=== PATIENT | female | born 1985 | race Caucasian/White ===

== ENCOUNTER 2018-02-05 12:31 | Observation (INO) ==
[2018-02-05] MEDS ORDERED: Ondansetron 4 MG/2 ML VIAL IVP ONE (12:38)
[2018-02-05] MEDS ORDERED: 0.9 % Sodium Chloride 1,000 ML IVC ONE (12:38)
[2018-02-05] MEDS ORDERED: MVI, adult with vitamin K 10 ML in 0.9 % Sodium Chloride 1,000 ML IVC ONE (12:38)
--- NOTE | 2018-02-05 12:42 | Emergency Department Note ---
Disposition Clinical Impression: Gastroenteritis, Alcohol abuse with intoxication Disposition: Transfer Intermediate Care Fac Condition: Good Time of Disposition: 13:17 (Dr Brooks accepted the pt for CIWA protocol and hydration) Nausea/Vomiting/Diarrhea HPI - General Chief complaint: ED Nausea/Vomiting/Diarrhea Stated complaint: Hang over, nausea and vomiting Source: patient Limitations: no limitations Nursing Notes Reviewed: Yes Vital Signs Reviewed: Yes - History of Present Illness HPI Narrative: Patient is a pleasant 32-year-old female with no significant PMH who is presenting to [facility] Emergency Room with a chief complaint off alcohol withdrawal. Patient complaining off nausea or vomiting and generalized abdominal pain from the excessive vomiting. She has been vomiting constantly and unable to hold anything down. She admits to drinking 3 large cans of beer yesterday night. She states that she always drink the same but did not experience such symptoms. She is lethargic and weak and has generalized body aches. Patient denies any fever, chills or night sweats. Pt also denies any eye pain or visual disturbances. There is no sore throat, nasal drainages or facial congestion. There is no chest pain, palpitations or racing heart. Pt also denies any shortness of breath, cough or chest congestion. There is no urgency, frequency or dysuria. There is no muskulo-skeletal pain, arthralgia or back pain. Patient also denies any rash, edema or pruritus. There is no neurological manifestations, no headache, no vertigo or weakness. The patient also denies any anxiety, depression, hallucinations and has no homicidal or suicidal ideations. There is no polyuria, polydipsia or recent weight change. There is no easy bruising or bleeding. Review of other systems is otherwise negative except above. Pt Subjective Complaint: nausea, vomiting, abdominal pain Onset (ago): hour(s) (12) Description of emesis: food contents - Related Data Home Medications Medication Instructions Recorded Confirmed No Known Home Drugs 02/05/18 02/05/18 Allergies Allergy/AdvReac Type Severity Reaction Status Date / Time No Known Allergies Allergy Verified 02/05/18 12:31 All systems ED: reviewed and negative except as stated. Review of Systems: As Per HPI Constitutional: Reports: weakness. Denies: fever, chills, weight change Eyes: Denies: eye pain, eye discharge, vision change ENT ED: Denies: ear pain, throat pain, dental pain, hearing loss, epistaxis, congestion, dysphagia Cardiovascular: Denies: chest pain, palpitations, dyspnea on exertion, edema, syncope Respiratory: Denies: cough, dyspnea, wheezes, hemoptysis, stridor Gastrointestinal: Reports: abdominal pain, nausea, vomiting. Denies: diarrhea, constipation, hematemesis, melena, hematochezia Genitourinary: Denies: dysuria, frequency, hematuria, discharge Musculoskeletal: Denies: back pain, neck pain, arthralgia, myalgia Integumentary: Denies: rash, abrasion, lesions Neurological: Denies: headache, weakness, numbness, paresthesias, confusion, abnormal gait, vertigo Psychiatric: Denies: anxiety, depression, suicidal thoughts, homicidal thoughts, auditory hallucinations, visual hallucinations Endocrine: Denies: fatigue Hematological/Lymphatic: Denies: easy bleeding, easy bruising Allergic/Immunologic: Denies: facial swelling, urticaria Past Medical History - Past Medical History Medical history: Reports: no medical history Surgical history: Reports: other (tonsillectomy) Psychiatric history: Reports: no psych history - Social History Smoking Status: Current every day smoker Smokeless Tobacco Status: No Alcohol use: Reports: occasionally, recent Drug use: Reports: marijuana Physical Exam - General Limitations: no limitations General appearance: alert, lethargic, in distress - Head Head exam: atraumatic, normocephalic, normal inspection - Eye Eye exam: Present: normal appearance, PERRL, EOMI - Expanded Eye Exam Pupils: Left: reactive - ENT ENT exam: normal exam, normal oropharynx, mucous membranes dry - Expanded ENT Exam External ear exam: Present: normal external inspection Mouth exam: Present: normal external inspection Teeth exam: Present: normal inspection Throat exam: Present: normal inspection - Neck Neck exam: Present: normal inspection, full ROM, trachea midline - Chest Chest inspection: Present: normal inspection, symmetric chest wall rise - Respiratory Respiratory exam: Present: normal lung sounds bilaterally - Cardiovascular Cardiovascular exam: Present: regular rate, normal rhythm, normal heart sounds - Abdominal Exam Abdominal exam: Present: soft, Non-Tender. Absent: tenderness, distention, guarding, rebound, rigidity - Extremities Exam Extremities exam: Present: normal inspection, full ROM. Absent: tenderness, ped al edema - Expanded Upper Extremity Exam Shoulder exam: Present: normal inspection, full ROM Arm exam: Present: normal inspection, full ROM Elbow exam: Present: normal inspection, full ROM Forearm/Wrist exam: Present: normal inspection, full ROM Hand exam: Present: normal inspection, full ROM Vascular exam: Normal: capillary refill, radial pulse - Expanded Lower Extremity Exam Hip/Pelvis exam: Present: normal inspection, full ROM Upper leg exam: Present: normal inspection, full ROM Knee exam: Present: normal inspection, full ROM Lower leg exam: Present: normal inspection, full ROM Ankle exam: Present: normal inspection, full ROM Foot/toe exam: Present: normal inspection, full ROM Neurovascular/Tendon exam: Absent: motor deficit, sensory deficit, tendon deficit - Back Exam Back exam: Present: normal inspection, full ROM. Absent: tenderness - Neurological Exam Neurological exam: Present: alert, oriented X3 - Expanded Neurological Exam Patient oriented to: Present: person, place, time Coma Scale Eye Opening: Spontaneous Coma Scale Motor Response: Obeys Commands Coma Scale Verbal Response: Oriented Coma Scale Total: 15 - Psychiatric Psychiatric exam: Present: normal affect, normal mood - Skin Skin exam: Present: warm, dry, intact, normal color Course Vital Signs Temperature 97.4 F L 02/05/18 12:32 Pulse Rate 70 02/05/18 12:32 Respiratory Rate 18 02/05/18 12:32 Blood Pressure 147/99 02/05/18 12:32 O2 Sat by Pulse Oximetry 98 02/05/18 12:32 Temperature 97.4 F L 02/05/18 12:32 Pulse Rate 66 02/05/18 13:43 Respiratory Rate 18 02/05/18 13:43 Blood Pressure 134/82 02/05/18 13:43 O2 Sat by Pulse Oximetry 99 02/05/18 13:43 Oxygen Delivery Oxygen Delivery Room Air Nausea/Vomiting/Diarrhea - Differential Diagnosis Likely: food poisoning, gastroenteritis, drug-induced nausea and vomitting, dehydration - Medical Records Medical records reviewed: Yes I reviewed the patient's medical records. - Lab Data Lab results reviewed: Yes I reviewed the patient's lab results. Result diagrams: 02/05/18 13:01 02/05/18 13:01 Lab Results 02/05/18 02/05/18 02/05/18 Range/Units 12:50 12:50 12:50 WBC (4.3-11.1) K/mcL RBC (3.82-4.97) M/mcL Hgb (11.5-15.4) g/dL Hct (35.3-44.9) % MCV (83.0-100.0) fL MCH (28.0-33.3) pg MCHC (31.6-35.5) g/dL RDW (11.5-14.5) % Plt Count (140-400) K/mcL MPV (9.4-12.4) fL Immature Gran % (0-4) % Seg Neutrophils % % Lymphocytes % % Monocytes % % Eosinophils % % Basophils % % Neutrophils # (1.6-8.9) K/mcL Lymphocytes # (0.6-4.6) K/mcL Monocytes # (0.0-1.3) K/mcL Eosinophils # (0.0-0.6) K/mcL Basophils # (0.0-0.2) K/mcL Sodium (136-145) mEq/L Potassium (3.5-5.1) mEq/L Chloride (98-107) mEq/L Carbon Dioxide (23-29) mEq/L BUN (6-20) mg/dL Creatinine (0.60-1.20) mg/dL Est GFR ( Amer) (> 60) Est GFR (Non-Af Amer) (> 60) BUN/Creatinine Ratio (6-26) Glucose (70-105) mg/dL Calculated Osmolality (280-300) Calcium (8.6-10.3) mg/dL Total Bilirubin (0.3-1.0) mg/dL AST (13-39) Units/L ALT (7-52) Units/L Alkaline Phosphatase (34-104) Units/L Serum Total Protein (6.4-8.9) g/dL Albumin (3.5-5.7) g/dL Globulin (2.4-3.5) g/dL Albumin/Globulin Ratio (1.1-2.2) Lipase (11-82) Units/L Urine Color Yellow (Yellow) Urine Clarity Clear (Clear) Urine pH 5.0 (5.0-8.0) pH Units Ur Specific [place] >= 1.030 H (1.010-1.025) Urine Protein 30 H (Neg-Trace) mg/dL Urine Glucose (UA) Normal (Normal) mg/dL Urine Ketones 80 H (Negative) mg/dL Urine Blood Negative (Negative) Urine Nitrite Negative (Negative) Urine Bilirubin Negative (Negative) Urine Urobilinogen Normal (Normal) mg/dL Ur Leukocyte Esterase Negative (Negative) Urine Microscopic RBC 0-3 (0-3) per hpf Urine Microscopic WBC 0-3 (0-3) per hpf Ur Squamous Epith Cells Few (None-Few) per lpf Urine Bacteria Few (None-Few) per hpf Urine Mucus Few (Few) Ur Culture Indicated? NO (NO) Urine Test Negative (Negative) Urine Opiates Screen Negative (Mlsuxg=274) ng/mL Ur Oxycodone Screen Negative (Cutoff= 100) ng/mL Ur Barbiturates Screen Negative (Gcbvhx=211) ng/mL Ur Phencyclidine Scrn Negative (Cutoff=25) ng/mL Ur Amphetamines Screen Negative (Pwyaqg=0471) ng/mL U Benzodiazepines Scrn Negative (Lrvdpd=350) ng/mL Urine Cocaine Screen Negative (Cutoff= 300) ng/mL U Marijuana (THC) Screen Positive H (Cutoff = 50) ng/mL Ur Drug Screen Interp See Below Ethyl Alcohol (Less than 10) mg/dL 02/05/18 02/05/18 02/05/18 Range/Units 13:01 13:01 13:01 WBC 16.0 H (4.3-11.1) K/mcL RBC 4.29 (3.82-4.97) M/mcL Hgb 14.6 (11.5-15.4) g/dL Hct 42.1 (35.3-44.9) % MCV 98.1 (83.0-100.0) fL MCH 34.0 H (28.0-33.3) pg MCHC 34.7 (31.6-35.5) g/dL RDW 11.8 (11.5-14.5) % Plt Count 302 (140-400) K/mcL MPV 9.5 (9.4-12.4) fL Immature Gran % 0.4 (0-4) % Seg Neutrophils % 88.6 % Lymphocytes % 8.2 % Monocytes % 2.4 % Eosinophils % 0.1 % Basophils % 0.3 % Neutrophils # 14.2 H (1.6-8.9) K/mcL Lymphocytes # 1.3 (0.6-4.6) K/mcL Monocytes # 0.4 (0.0-1.3) K/mcL Eosinophils # 0.0 (0.0-0.6) K/mcL Basophils # 0.1 (0.0-0.2) K/mcL Sodium 143 (136-145) mEq/L Potassium 4.3 (3.5-5.1) mEq/L Chloride 106 (98-107) mEq/L Carbon Dioxide 20 L (23-29) mEq/L BUN 17 (6-20) mg/dL Creatinine 0.70 (0.60-1.20) mg/dL Est GFR ( Amer) > 60 (> 60) Est GFR (Non-Af Amer) > 60 (> 60) BUN/Creatinine Ratio 24 (6-26) Glucose 94 (70-105) mg/dL Calculated Osmolality 297 (280-300) Calcium 9.4 (8.6-10.3) mg/dL Total Bilirubin 0.8 (0.3-1.0) mg/dL AST 29 (13-39) Units/L ALT 15 (7-52) Units/L Alkaline Phosphatase 55 (34-104) Units/L Serum Total Protein 8.1 (6.4-8.9) g/dL Albumin 5.3 (3.5-5.7) g/dL Globulin 2.8 (2.4-3.5) g/dL Albumin/Globulin Ratio 1.9 (1.1-2.2) Lipase 20 (11-82) Units/L Urine Color (Yellow) Urine Clarity (Clear) Urine pH (5.0-8.0) pH Units Ur Specific [place] (1.010-1.025) Urine Protein (Neg-Trace) mg/dL Urine Glucose (UA) (Normal) mg/dL Urine Ketones (Negative) mg/dL Urine Blood (Negative) Urine Nitrite (Negative) Urine Bilirubin (Negative) Urine Urobilinogen (Normal) mg/dL Ur Leukocyte Esterase (Negative) Urine Microscopic RBC (0-3) per hpf Urine Microscopic WBC (0-3) per hpf Ur Squamous Epith Cells (None-Few) per lpf Urine Bacteria (None-Few) per hpf Urine Mucus (Few) Ur Culture Indicated? (NO) Urine Test (Negative) Urine Opiates Screen (Nklnnb=337) ng/mL Ur Oxycodone Screen (Cutoff= 100) ng/mL Ur Barbiturates Screen (Viuhif=920) ng/mL Ur Phencyclidine Scrn (Cutoff=25) ng/mL Ur Amphetamines Screen (Bdladx=8584) ng/mL U Benzodiazepines Scrn (Bunqno=926) ng/mL Urine Cocaine Screen (Cutoff= 300) ng/mL U Marijuana (THC) Screen (Cutoff = 50) ng/mL Ur Drug Screen Interp Ethyl Alcohol 21 H (Less than 10) mg/dL
[2018-02-05] MEDS ORDERED: Pantoprazole 40 MG VIAL IVP ONE (12:49)
[2018-02-05 13:02] LABS: Bilirubin,Urine Negative (Negative); Blood,Urine Negative (Negative); Clarity,Urine Clear (Clear); Color,Urine Yellow (Yellow); Glucose,Urine (UA) Normal (Normal); Ketones,Urine 80 mg/dL (Negative); Leukocyte Esterase,Urine Negative (Negative); Nitrite,Urine Negative (Negative); Protein,Urine 30 mg/dL (Neg-Trace); Specific Gravity,Urine >= 1.030 (1.010-1.025); Urobilinogen,Urine Normal (Normal)
[2018-02-05 13:08] LABS: Basophils # 0.1 K/mcL (0.0-0.2); Basophils % 0.3 %; Eosinophils % 0.1 %; Hematocrit 42.1 % (35.3-44.9); Hemoglobin 14.6 g/dL (11.5-15.4); Immature Granulocytes % 0.4 % (0-4); Lymphocytes # 1.3 K/mcL (0.6-4.6); Lymphocytes % 8.2 %; Mean Corpuscular HGB Conc 34.7 g/dL (31.6-35.5); Mean Corpuscular Volume 98.1 fL (83.0-100.0); Mean Platelet Volume 9.5 fL (9.4-12.4); Monocytes # 0.4 K/mcL (0.0-1.3); Monocytes % 2.4 %; Neutrophils # 14.2 K/mcL (1.6-8.9); Platelet Count 302 K/mcL (140-400); Red Blood Count 4.29 M/mcL (3.82-4.97); Red Cell Distribution Width 11.8 % (11.5-14.5); Segmented Neutrophils % 88.6 %
[2018-02-05 13:09] LABS: Bacteria,Urine Few per hpf (None-Few); Mucus,Urine Few (Few); RBC,Urine 0-3 per hpf (0-3); Squamous Epithelial Cell,Urine Few per lpf (None-Few); WBC,Urine 0-3 per hpf (0-3)
[2018-02-05] MEDS ORDERED: Naloxone 0.4 MG/ML INJ IVP PRN ×2 (13:18→13:20)
[2018-02-05 13:27] LABS: Alanine Aminotransferase 15 Units/L (7-52); Albumin 5.3 g/dL (3.5-5.7); Albumin/Globulin Ratio 1.9 (1.1-2.2); Alkaline Phosphatase 55 Units/L (34-104); Aspartate Amino Transferase 29 Units/L (13-39); BUN/Creatinine Ratio 24 (6-26); Bilirubin,Total 0.8 mg/dL (0.3-1.0); Blood Urea Nitrogen 17 mg/dL (6-20); Calcium 9.4 mg/dL (8.6-10.3); Carbon Dioxide 20 mEq/L (23-29); Chloride 106 mEq/L (98-107); Globulin 2.8 g/dL (2.4-3.5); Glucose 94 mg/dL (70-105); Lipase 20 Units/L (11-82); Osmolality,Calculated 297 (280-300); Potassium 4.3 mEq/L (3.5-5.1); Sodium 143 mEq/L (136-145); Total Protein 8.1 g/dL (6.4-8.9); eGFR For Non-African Americans > 60 (> 60)
[2018-02-05] MEDS: MVI, adult with vitamin K 10 ML in 0.9 % Sodium Chloride 1,000 ML IVC ONE ×2 (13:49→14:40)
[2018-02-05 14:25] LABS: Amphetamine Screen,Urine Negative ng/mL (Cutoff=1000); Barbiturate Screen,Urine Negative ng/mL (Cutoff=200); Benzodiazepines Screen,Urine Negative ng/mL (Cutoff=200); Cannabinoid Screen,Urine Positive ng/mL (Cutoff = 50); Cocaine Screen,Urine Negative ng/mL (Cutoff= 300); Opiate Screen,Urine Negative ng/mL (Cutoff=300); Phencyclidine Screen,Urine Negative ng/mL (Cutoff=25)
[2018-02-05] MEDS ORDERED: *HR* Promethazine 25 MG/ML VIAL IVP PRN (14:25)
[2018-02-05] MEDS: 0.9 % Sodium Chloride 1,000 ML IVC SCH ×2 (14:42→17:31)
[2018-02-05] MEDS ORDERED: *HR* HYDROmorphone (PF) 1 MG/ML SYRINGE IVP PRN (14:58)
[2018-02-05] MEDS ORDERED: Ondansetron 4 MG/2 ML VIAL IVP PRN (18:18)
[2018-02-05] MEDS ORDERED: ALPRAZolam 0.5 MG TABLET PO PRN (18:21)
--- NOTE | 2018-02-05 18:22 | Internal Med History&Physical ---
Date of Encounter: 02/05/18 Time of Encounter: 17:50 Assessment and Plan (1) Gastroenteritis Current visit: Yes Status: Acute She will be given IV fluids. Antiemetics will be used as needed. (2) Alcohol abuse with intoxication Current visit: Yes Status: Acute She was ordered a banana bag. She will have Xanax ordered for prn usage. Internal Medicine - H&P: HPI Chief complaint: Vomiting Admitted From: Emergency Dept Plans for Post Hospital Care: Home History of present illness: Ms. Lake is a 32 year old female who came to emergency room stating she awakened at 0800 today and felt "sick" after drinking some water. She began vomiting intractably. She denies hematemesis. She states she gradually became lightheaded. She came to emergency room and was evaluated and found to have leukocytosis with left shift. She was admitted to [facility] floor for ongoing ca re needs. She admits she had been drinking last evening but states she drinks alcohol daily. Her consumption includes wine and/or beer and/or occasional hard liquor. She also admits to using daily THC. She complains of esophageal burning from the frequent vomiting. She denies disorders of her liver gallbladder or exocrine pancreas. Past Med Surg Social Fam HX - Past Medical History Medical history: no medical history Psychiatric history: no psych history - Past Surgical History Surgical History: other Additional surgical history: tonsilectomy - Social History Smoking Status: Current every day smoker Smokeless Tobacco Status: No Alcohol use: occasionally, recent Drug use: marijuana - Family History Father Living Status: Still Living Hx Family Cardiac Disorders: Yes (HTN) Internal Medicine - H&P: Meds No Known Home Drugs 02/05/18 [History] Allergy/AdvReac Type Severity Reaction Status Date / Time No Known Allergies Allergy Verified 02/05/18 12:31 All Systems PM: A 10-system review of systems was performed and is negative for pertinent findings except as documented above in the HPI. Review of systems: Gen.: She states her weight fluctuates several pounds regularly Cardiovascular: She denies known hypertension DC heart failure angina DVT or pulmonary embolus Respiratory: She has smoked since age 18 up to 1 pack per day. She denies known chronic lung disease. GI: As per history of present illness : She denies hematuria dysuria or kidney stones Neurologic: She felt dizzy earlier today as per history of present illness. She denies syncope or seizures. Endocrine: She denies diabetes thyroid disease or hyperlipidemia Hematology/oncology: She denies blood disorders cancers or anemia Psychiatric: She states she feels depressed frequently. She attributes this moving to this area from previously living in [place] near family and she now feels "alone" often. [place] skeletal: She has scoliosis. She denies other bone joint or muscle disorders. - Constitutional Vitals: Temp Pulse Resp BP Pulse Ox 97.4 F L 66 18 134/82 99 02/05/18 12:32 02/05/18 13:43 02/05/18 13:43 02/05/18 13:43 02/05/18 14:49 Exam: Gen.: She is a well-developed well-nourished female sitting comfortably in bed who appears slightly anxious but in no acute distress HEENT: Head is atraumatic and normocephalic. Eyes: EOMI. There is no scleral icterus. Mouth: Mucosa is moist. Neck: Supple and nontender. There is no thyromegaly or adenopathy noted. Heart: Regular without murmurs gallops or ectopics Lungs: No wheezes or crackles are heard. Abdomen: Soft and nontender. No masses or guarding are noted. Extremities: There is no edema of her lower legs. Neurologic: Mental status: She is talkative and a good historian. She appears slightly anxious. Cranial nerves: Smile is symmetric. Forehead wrinkles bilaterally. Tongue protrudes midline. EOMI. Motor: There is no pronator drift. Cerebellar: Finger to nose is intact bilaterally. Skin: Warm and dry Internal Med - H&P Results - Labs CBC & Chem 7: 02/05/18 13:01 02/05/18 13:01 Labs: Short CBC 02/05/18 Range/Units 13:01 WBC 16.0 H (4.3-11.1) K/mcL Hgb 14.6 (11.5-15.4) g/dL Hct 42.1 (35.3-44.9) % Plt Count 302 (140-400) K/mcL Neutrophils # 14.2 H (1.6-8.9) K/mcL BMP 02/05/18 13:01 Sodium 143 Potassium 4.3 Chloride 106 Carbon Dioxide 20 L BUN 17 Creatinine 0.70 Glucose 94 Calcium 9.4 Liver Function 02/05/18 Range/Units 13:01 Total Bilirubin 0.8 (0.3-1.0) mg/dL AST 29 (13-39) Units/L ALT 15 (7-52) Units/L Alkaline Phosphatase 55 (34-104) Units/L Albumin 5.3 (3.5-5.7) g/dL Urine 02/05/18 Range/Units 12:50 Urine Color Yellow (Yellow) Urine Clarity Clear (Clear) Urine pH 5.0 (5.0-8.0) pH Units Ur Specific [place] >= 1.030 H (1.010-1.025) Urine Protein 30 H (Neg-Trace) mg/dL Urine Glucose (UA) Normal (Normal) mg/dL - Impressions ITS Impressions Abdomen/Pelvis CT 02/05/18 15:07 IMPRESSION: Negative D/ / Yakov Castro MD / Yakov Castro MD Interpreting Provider: Yakov Castro MD - VTE Reasons for not Prescribing Prophylaxis: Treatment not Indicated - Low risk for VTE
[2018-02-05] MEDS: Nicotine 21 MG PATCH.TD24 TD SCH (18:55)
[2018-02-05] MEDS: 0.45 % Sodium Chloride w/KCl 20 MEQ/1,000 ML MLS IVC SCH (18:55)
[2018-02-05] MEDS: Mag Hydrox/Al Hydrox/Simeth 30 ML UDC PO PRN (19:43)
[2018-02-06] MEDS: 0.45 % Sodium Chloride w/KCl 20 MEQ/1,000 ML MLS IVC SCH (04:58)
[2018-02-06] MEDS: Mag Hydrox/Al Hydrox/Simeth 30 ML UDC PO PRN (05:02)
[2018-02-06 06:59] LABS: Basophils % 0.3 %; Eosinophils # 0.1 K/mcL (0.0-0.6); Eosinophils % 0.5 %; Hematocrit 39.2 % (35.3-44.9); Hemoglobin 13.6 g/dL (11.5-15.4); Immature Granulocytes % 0.4 % (0-4); Lymphocytes # 2.3 K/mcL (0.6-4.6); Lymphocytes % 18.2 %; Mean Corpuscular HGB Conc 34.7 g/dL (31.6-35.5); Mean Corpuscular Hemoglobin 33.9 pg (28.0-33.3); Mean Corpuscular Volume 97.8 fL (83.0-100.0); Mean Platelet Volume 9.6 fL (9.4-12.4); Monocytes # 1.1 K/mcL (0.0-1.3); Monocytes % 8.9 %; Neutrophils # 9.1 K/mcL (1.6-8.9); Platelet Count 223 K/mcL (140-400); Red Blood Count 4.01 M/mcL (3.82-4.97); Red Cell Distribution Width 11.8 % (11.5-14.5); Segmented Neutrophils % 71.7 %
[2018-02-06 07:08] VITALS: BP 119/71
[2018-02-06 07:19] LABS: BUN/Creatinine Ratio 17 (6-26); Blood Urea Nitrogen 11 mg/dL (6-20); Calcium 8.3 mg/dL (8.6-10.3); Carbon Dioxide 23 mEq/L (23-29); Chloride 107 mEq/L (98-107); Glucose 91 mg/dL (70-105); Magnesium 2.1 mg/dL (1.6-2.6); Osmolality,Calculated 283 (280-300); Potassium 4.1 mEq/L (3.5-5.1); Sodium 137 mEq/L (136-145); eGFR For Non-African Americans > 60 (> 60)
--- NOTE | 2018-02-06 08:47 | Discharge Summary ---
Orders not resulted at time of discharge: Pending orders 02/05/18 13:25 Test Result, Urine [URIN] Stat Urinalysis Reflex Cult & Micro [URIN] Stat Date of Encounter: 02/06/18 Time of Encounter: 08:35 - Discharge Diagnosis (1) Gastroenteritis Priority: Primary Status: Acute (2) Alcohol abuse with intoxication Priority: Secondary Status: Acute Hospital course: Ms. Lake is a 32 year old female who came to emergency room stating she awakened at 0800 today and felt "sick" after drinking some water. She began vomiting intractably. She denies hematemesis. She states she gradually became lightheaded. She came to emergency room and was evaluated and found to have leukocytosis with left shift. She was admitted to [facility] for ongoing care needs. Initial orders were written by the emergency room physician. I saw her on February 05 and performed a history and physical. She was given IV fluids. Antiemetics were used as needed. When I saw her on February 06 she reported she had no further vomiting since the previous evening. She had been able to tolerate adequate amounts of oral intake. Follow-up lab work on February 06 showed WBC improved to 12.7 with resolution of left shift. Magnesium level returned normal at 2.1. On February 06 I felt she was stable for discharge home. I encouraged her to discontinue her use of tobacco, alcohol, and marijuana. She stated she wished to quit tobacco and alcohol but had no desire to stop using marijuana. - Time Spent with Patient Total time spent providing and/or coordinating discharge services: - Discharge Medications Home Medications: No Known Home Drugs 02/05/18 [History] Allergies/Adverse Reactions: Allergy/AdvReac Type Severity Reaction Status Date / Time No Known Allergies Allergy Verified 02/05/18 12:31 Date of admission: 02/05/18 14:06 Primary care physician: PCP NONE - Constitutional Vitals: Temp Pulse Resp BP Pulse Ox 98.5 F 55 16 119/71 98 02/06/18 07:07 02/06/18 07:07 02/06/18 07:07 02/06/18 07:07 02/06/18 07:07 - Patient Status Disposition: Home, Self-Care Condition: Good - Discharge Instructions Follow Up With: NONE,PCP [Primary Care Provider] - 1 week - Diet and Activity Activity: resume usual activities as tolerated Diet: advance to your usual diet - VTE Reasons for not Prescribing Prophylaxis: Treatment not Indicated - Low risk for VTE
[2018-02-06] MEDS: Nicotine 21 MG PATCH.TD24 TD SCH (09:37)
== END 2018-02-06 09:51 | disposition home or self-care (01) ==
LOC: INPPIK 12:31 → EMEROOPIK 12:31 → INPPIK 14:21
PROVIDERS: ADMIT Internal Medicine; ATTEND Internal Medicine